=== PATIENT | male | born 1955 | race Caucasian/White ===

== ENCOUNTER 2022-03-25 21:41 | Emergency (ER) | payer OTHER ==
[~2022-03-25] VITALS: Ht 182.9 cm; Wt 77.1 kg
--- NOTE | 2022-03-25 22:10 | NUR ---
BIBS FOR FACIAL INJURY S/P TRIP AND FALL . -KO, TDAP NOT UPDATED. PATIENT IS [id number]. ABLE TO MAKE NEEDS KNOWN. PLACED COMFORTABLY IN BED. VITALS CHECKED.
[2022-03-25] MEDS ORDERED: IBUPROFEN 400 MG TABLET PO ONE (22:30)
[2022-03-25] MEDS ORDERED: TDAP [DIPH/PERTUSSIS/TET] 0.5 ML VIAL IM ONE ×2 (22:30→22:37)
--- NOTE | 2022-03-25 22:34 | NUR ---
BROUGHT TO CT DEPT
[2022-03-25] MEDS ORDERED: IBUPROFEN 400 MG TABLET ONE (22:36)
[2022-03-25] MEDS ORDERED: LIDOCAINE HCL/PF 1% 30 ML SDV ONE (23:15)
[2022-03-25] MEDS ORDERED: LIDOCAINE 1%-EPI 1:100,000 20 ML VIAL ONE (23:17)
--- NOTE | 2022-03-25 23:23 | NUR ---
LAC TO FOREHEAD CLEANED. DR. MARIXA MICHAEL AT PT'S BEDSIDE FOR SUTURES TO FOREHEAD
--- NOTE | 2022-03-25 23:30 | NUR ---
SUTURING OF WOUND ONGOING BY DR CALVIN
--- NOTE | 2022-03-25 23:40 | NUR ---
Patient discharged to home in stable condition. Written and verbal after care instructions given. Patient verbalizes understanding of instruction.
[2022-03-26 00:49] VITALS: BP 165/81
== END 2022-03-25 23:40 | disposition home or self-care (01) ==
LOC: ER 21:43
DX: S01.81XA Laceration without foreign body of other part of head, initial encounter (principal); Z60.2 Problems related to living alone; W01.0XXA Fall on same level from slipping, tripping and stumbling without subsequent striking against object, initial encounter; Y93.89 Activity, other specified; Y92.89 Other specified places as the place of occurrence of the external cause; Y99.8 Other external cause status
CPT/HCPCS: 99284; 72125; 12011; 90471; 90715; 70450; 70486; A6403 ×2; J3490

== ENCOUNTER 2022-04-07 09:52 | Emergency (ER) | payer OTHER ==
[~2022-04-07] VITALS: Ht 180.3 cm; Wt 77.1 kg
--- NOTE | 2022-04-07 10:10 | NUR ---
DR. ART EVALUATING THE PATIENT FOR SUTURE REMOVAL.
--- NOTE | 2022-04-07 10:16 | NUR ---
Patient discharged to home in stable condition. Written and verbal after care instructions given. Patient verbalizes understanding of instruction.
[2022-04-07 10:17] VITALS: BP 152/80
== END 2022-04-07 10:16 | disposition home or self-care (01) ==
LOC: ER 10:13
DX: Z48.02 Encounter for removal of sutures (principal); Z60.2 Problems related to living alone